=== PATIENT | male | born 1950 | race Caucasian/White ===

== ENCOUNTER 2023-11-15 09:28 | Emergency (ER) | payer MEDICARE, BC ==
[2023-11-15] MEDS ORDERED: GLUCAGON 1 MG/ML VIAL ONE (10:40)
--- NOTE | 2023-12-18 10:33 | XR ---
Patient Hilton Escobar ID [id number] Order # EXAMINATION TYPE: XR calcaneus 2V BILATERAL DATE OF EXAM: 11/15/2023 COMPARISON: None on downtime PACS INDICATION: Food stuck in throat TECHNIQUE: Frontal and lateral views of the chest are obtained. FINDINGS: The heart size is normal. The pulmonary vasculature is normal. Some minimal subsegmental atelectasis may be at the left lung base. No radiopaque foreign bodies gwen dent. No suspicious air-fluid levels evident. IMPRESSION: 1. No foreign body identified. 2. Minimal subsegmental atelectasis left lung base
== END 2023-11-15 12:00 | disposition home or self-care (01) ==
LOC: EC 09:28
DX: T18.128A Food in esophagus causing other injury, initial encounter (principal)
CPT/HCPCS: 71046; 96374; 96375; 99282